=== PATIENT | male | born 1980 | race Asian ===

== ENCOUNTER 2022-12-17 22:44 | Emergency (ER) | payer OTHER ==
[~2022-12-17] VITALS: Ht 175.3 cm; Wt 101.0 kg
[2022-12-18] MEDS ORDERED: cloNIDine HCL 0.1 MG TAB PO ONE (00:15)
[2022-12-18 00:33] LABS: Basophils # (auto) 0.1 10 ^3/uL (0-0.2); Basophils % (auto) 0.8 % (0.0-2.0); Eosinophils # (auto) 0.1 10 ^3/uL (0-0.8); Eosinophils % (auto) 1.5 % (0.0-7.0); Hemoglobin 16.8 g/dL (13.5-17.5); Lymphocytes # (auto) 2.7 10 ^3/uL (0.4-5.4); Lymphocytes % (auto) 30.2 % (10.0-50.0); Mean Corpuscular Hemoglobin 30.4 pg (28.0-32.0); Mean Corpuscular Hgb Conc. 34.9 g/dL (32.0-36.0); Monocytes % (auto) 10.8 % (0.0-12.0); Neutrophils % (auto) 56.7 % (37.0-80.0); Nucleated Red Blood Cells % 0.2 %; Red Blood Cells 5.52 10^6/uL (4.5-5.90); White Blood Cell 8.8 10^3/uL (4.4-10.8)
[2022-12-18 00:39] LABS: Albumin 3.7 g/dL (3.4-5.0); Anion Gap 9 (5-15); BUN/Creatinine Ratio 14.2 (10.0-20.0); Blood Urea Nitrogen 15 mg/dL (7-18); Calcium 8.8 mg/dL (8.5-10.1); Carbon Dioxide 24 mmol/L (21-32); Chloride 104 mmol/L (98-107); GFR African American 99 mL/min; GFR Non-African American 81 mL/min; Glucose 106 mg/dL (74-106); Potassium 3.6 mmol/L (3.5-5.1); Sodium 137 mmol/L (136-145)
[2022-12-18 00:42] LABS: Alanine Aminotransferase 39 U/L (16-61); Alkaline Phosphatase 123 U/L (45-117); Aspartate Aminotransferase 23 U/L (15-37); Bilirubin, Total 0.5 mg/dL (0.2-1.0); Total Protein 7.5 g/dL (6.4-8.2)
[2022-12-18 01:39] VITALS: BP 151/104
[2022-12-18] MEDS ORDERED: AML5T PO (01:49)
== END 2022-12-18 02:08 | disposition home or self-care (01) ==
LOC: ER 22:44
DX: I10 Essential (primary) hypertension (principal)
CPT/HCPCS: 36415; 71045; 80053; 83880; 84484; 85025; 93005